=== PATIENT | male | born 1995 | race Caucasian/White ===

== ENCOUNTER 2024-11-28 07:18 | Outpatient (CLI) | payer SELFPAY ==
--- NOTE | 2024-11-28 07:36 | CT_ITS ---
WS: [id number] CT CALCIUM SCORE REASON FOR VISIT: HYPERTENSION/HYPERLIPIDEMIA/MORBID OBESITY; Coronary artery disease risk assessment COMPARISON: None TECHNIQUE: Noncontrast coronary CT in combination with quantitative analysis performed on a separate workstation were used to determine CACS (Agatston score) TOTAL EXAM DOSE: 165.79 mGy.cm ECG GATING: Prospective SCAN RANGE: Pulmonary artery bifurcation to Inferior aspect of heart COMPLICATIONS: None FINDINGS: Technical Quality/Examination Quality: Good Limitations: None OVERALL SCORES Total calcium score: 0 Total volume score: 0 mm3 Percentile: 0-25 % ARTERY SCORES Left main coronary artery: 0 Left anterior descending artery: 0 Left circumflex artery: 0 Right coronary artery: 0 OTHER FINDINGS: Visualized mediastinal structures are negative. CT/CT heart w calcium score 54071 IMPRESSION: 1. Total coronary artery calcium score of 0. 2. Patient a very low risk for.
== END 2024-11-28 07:19 | disposition home or self-care (01) ==
PROVIDERS: Family Provider Family Medicine; PCP Family Medicine; Visit Provider Family Medicine
DX: I10 Essential (primary) hypertension (principal); E78.5 Hyperlipidemia, unspecified; E66.01 Morbid (severe) obesity due to excess calories
CPT/HCPCS: 75571